=== PATIENT | male | born 1960 | race Caucasian/White ===

== ENCOUNTER 2019-08-31 09:43 | Day surgery (SDC) | payer BC ==
[~2019-08-31] VITALS: Ht 172.7 cm; Wt 115.7 kg
[~2019-08-31 09:43] MED LIST: MOEXIPRIL HCL15 M1 PO; NORVASC5 MG PO; PROTONIX40 MG PO
[2019-08-31 10:32] LABS: HEMATOCRIT 42.2 % (42.0-54.0); HEMOGLOBIN 14.4 g/dL (13.5-17.5); MCH 30.6 pg (26.0-34.0); MCHC 34.1 g/dL (31.0-37.0); MCV 89.8 fL (80.0-100.0); MEAN PLATELET VOLUME 8.3 fL (7.4-10.4); RBC 4.7 10x6/uL (4.20-6.10); RDW 12.5 % (11.5-14.5); WBC 10.9 10x3/uL (4.8-10.8)
[2019-08-31] MEDS ORDERED: PREVACID15 MG PO (11:04)
[2019-08-31] MEDS ORDERED: FISH OIL 1,0001 CA1 PO (11:05)
[2019-08-31] MEDS ORDERED: MULTI-DAY VITAM1 TAB PO (11:05)
[2019-08-31] MEDS ORDERED: VITAMIN E200 UNI1 PO (11:12)
[2019-08-31 11:22] VITALS: BP 136/74; Ht 172.7 cm; Wt 115.7 kg
--- NOTE | 2019-08-31 15:28 | NUR ---
1515 - IV RESITED TO RT AC BY DAVID MONTES RN
--- NOTE | 2019-09-07 09:06 | OP ---
PATIENT NAME: ANDREINA ONTIVEROS MEDICAL RECORD: [id number] :64 LOCATION:[facility] ADMISSION DATE: SURGEON: VENR PENALOZA MD DATE OF OPERATION: 08/31/2019 PREOPERATIVE DIAGNOSES: Nasal obstruction, septal deviation, and turbinate hypertrophy. POSTOPERATIVE DIAGNOSES: Nasal obstruction, septal deviation, and turbinate hypertrophy. PROCEDURES: Septoplasty, bilateral inferior turbinate reduction. SURGEON: Vern Penaloza MD ANESTHESIA: General orotracheal. BLOOD LOSS: 1 cc. NASAL PACKING: Martínez splints bilaterally. COMPLICATIONS: None. DISPOSITION: Recovery stable. PROCEDURE NOTE: The patient was brought to the operating room and placed in the supine position, sedated and intubated by anesthesia. The eyes were taped. Table was turned 90 degrees. Head drapes applied. He was positioned for nasal surgery and had been decongested with Afrin preoperatively. Both the inferior turbinates, anterior septum, floor of the nose were injected with a total of 1.5 cc of the lidocaine with 1:100,000 epinephrine. Two Afrin pledgets were placed on each side. He was positioned, prepped and draped in the usual sterile fashion and all the Afrin pledgets were removed. The left-sided ipsilateral mucoperichondrial flap was elevated. He had previously undergone a septoplasty, so just inferior tunnel was opened up to remove a septal spur on the left side. Inferiorly the superior nasal septum was left alone, it was very thin and some just membranous. Both inferior turbinates were medialized with a freer. A Gruenwald was used to take down the inferior redundant portion. Suction cautery on a setting of 25 was used to stop any bleeding and both outfractured with a Patillas elevator. The lateral nasal valve was examined and opened up a little bit and then the Emil incision was closed with 3-0 chromic. 3-0 Vicryl was used bilaterally on the lateral portion of the nasal valve and then Martínez splints were placed bilaterally with some mupirocin ointment and sutured to the anterior membranous septum with a 2-0 Prolene on a Daniele needle. He was awakened, extubated, and transported to recovery in good condition. No complications. TRANSINT:[id number] Voice Confirmation ID: [id number] DOCUMENT ID: [id number] OPERATIVE REPORT [id number] ANDREINA ONTIVEROS ERIC MD at 0906 CC: [id number] DICTATION DATE: 08/31/19 1446 LEAD PRINTER: 08/31/19 1756 [facility] 08/31/19 [facility] [address] [place] [address]
--- NOTE | 2019-09-07 09:06 | HP ---
PATIENT: ANDREINA URENA MEDICAL RECORD: [id number] ACCOUNT: [id number] LOCATION:[facility] : 64 ADMISSION DATE: 08/31/19 PCP: JAGDEEP CAN MD HISTORY AND PHYSICAL EXAMINATION PREOPERATIVE HISTORY AND PHYSICAL HISTORY OF PRESENT ILLNESS: Mr. Urena is a 58-year-old male. He is on CPAP for sleep apnea, but he is having difficulty using it due to nasal obstruction. He is admitted for septoplasty and turbinate reductions. PAST MEDICAL HISTORY: Includes hypertension, reflux, and sleep apnea. CURRENT MEDICATIONS: Norvasc, Univase, Protonix. ALLERGIES: No known drug allergies. PHYSICAL EXAMINATION: GENERAL: He is healthy-appearing, developmentally normal. FACE: Normal, symmetric, no lesions. EYES: Sclerae and conjunctivae are normal. EARS: Canals and TMs normal. NOSE: Very narrow passages, septal deviation, large turbinates. ORAL CAVITY AND OROPHARYNX: Long uvula with a little bit of a cyst on the side. He does have tonsils, normal palate. NECK: No masses, no adenopathy. CHEST: Clear. CARDIOVASCULAR: Regular rate and rhythm, no murmur. EXTREMITIES: Normal. IMPRESSION: Nasal obstruction, turbinate hypertrophy and septal deviation, refractory to medical management, interfering with CPAP use. PLAN: Septoplasty, bilateral inferior turbinate reduction. TRANSINT:[id number] Voice Confirmation ID: [id number] DOCUMENT ID: [id number] VERN HWANG MD at 0906 CC: [id number] DICTATION DATE: 08/30/19 1508 FITTER/WELDER: 08/30/19 1615 [facility] 08/31/19 [place] [id number] [place] [id number]
== END 2019-08-31 16:58 | disposition home or self-care (01) ==
LOC: D.OPS 09:43
PROVIDERS: Anesthesiology; ATTEND Otolaryngology
DX: J34.89 Other specified disorders of nose and nasal sinuses (principal); J34.2 Deviated nasal septum; J34.3 Hypertrophy of nasal turbinates